=== PATIENT | male | born 1955 | race Caucasian/White ===

== ENCOUNTER 2019-04-11 00:03 | Observation (INO) ==
[2019-04-11] MEDS ORDERED: Aspirin 81 MG TAB.CHEW PO ONE (00:45)
[2019-04-11] MEDS ORDERED: Ondansetron 4 MG/2 ML VIAL IVP ONE (00:45)
[2019-04-11] MEDS ORDERED: Morphine Sulfate 2 MG/ML SYRINGE IVP ONE ×2 (00:45→02:30)
[2019-04-11 00:58] LABS: Eosinophils % 1.8 %; Hematocrit 38.2 % (37.5-50.1); Hemoglobin 13.2 g/dL (12.9-16.9); Immature Granulocytes % 0.4 % (0-4); Lymphocytes % 31.3 %; Mean Corpuscular HGB Conc 34.6 g/dL (31.6-35.5); Mean Corpuscular Hemoglobin 32.7 pg (28.0-33.3); Mean Corpuscular Volume 94.6 fL (83.0-100.0); Monocytes % 9.6 %; Platelet Count 201 K/mcL (140-400); Red Blood Count 4.04 M/mcL (4.19-5.50); Red Cell Distribution Width 12.5 % (11.5-14.5); Segmented Neutrophils % 56.6 %; White Blood Count 9.8 K/mcL (4.3-11.1)
[2019-04-11 00:59] LABS: Basophils % 0.3 %; Eosinophils # 0.2 K/mcL (0.0-0.6); Lymphocytes # 3.1 K/mcL (0.6-4.6); Monocytes # 0.9 K/mcL (0.0-1.3); Neutrophils # 5.5 K/mcL (1.6-8.9)
[2019-04-11 01:05] LABS: Prothrombin Time 11.7 Seconds (9.4-12.1)
[2019-04-11 01:08] LABS: Activated Partial Thrombo Time 34.5 Seconds (26.0-36.0)
[2019-04-11 01:20] LABS: Blood Urea Nitrogen 15 mg/dL (8-23); Calcium 9.3 mg/dL (8.6-10.3); Carbon Dioxide 25 mEq/L (23-29); Chloride 105 mEq/L (98-107); Glucose 114 mg/dL (70-105); Osmolality,Calculated 288 (280-300); Sodium 138 mEq/L (136-145); Troponin I < 0.03 ng/mL (< 0.04)
[2019-04-11 01:46] LABS: BUN/Creatinine Ratio 14 (6-26); eGFR For African Americans > 60 (> 60); eGFR For Non-African Americans > 60 (> 60)
[2019-04-11] MEDS ORDERED: Ondansetron 4 MG/2 ML VIAL IVP PRN (04:43)
[2019-04-11] MEDS ORDERED: Naloxone 0.4 MG/ML INJ IVP PRN (04:43)
[2019-04-11] MEDS ORDERED: Dexamethasone 10 MG/ML VIAL PO ONE (04:49)
[2019-04-11 07:47] VITALS: BP 154/84
[2019-04-11 08:05] LABS: Chol/HDL Ratio 7.2 (0-4.9)
[2019-04-11 08:17] LABS: Estimated Average Glucose 126 mg/dl
[2019-04-11] MEDS ORDERED: hydroCHLOROthiazide 25 MG TABLET PO SCH (09:00)
[2019-04-11] MEDS ORDERED: Regadenoson 0.4 MG/5 ML SYRINGE IVP ONE (10:36)
== END 2019-04-11 15:10 | disposition home or self-care (01) ==
LOC: 2ANU 00:03 → EMEROOARM 00:03 → SUATTDRO 03:37 → 2ANU 04:03
PROVIDERS: ADMIT Internal Medicine; ATTEND Family Medicine

== ENCOUNTER 2019-04-12 02:49 | Observation (INO) ==
[2019-04-12] MEDS ORDERED: Ondansetron 4 MG/2 ML VIAL IVP ONE (03:04)
[2019-04-12 03:26] LABS: Hematocrit 39.8 % (37.5-50.1); Hemoglobin 13.8 g/dL (12.9-16.9); Mean Corpuscular HGB Conc 34.7 g/dL (31.6-35.5); Mean Corpuscular Volume 95.2 fL (83.0-100.0); Mean Platelet Volume 10.2 fL (9.4-12.4); Platelet Count 219 K/mcL (140-400); Red Blood Count 4.18 M/mcL (4.19-5.50); Red Cell Distribution Width 12.4 % (11.5-14.5); White Blood Count 14.6 K/mcL (4.3-11.1)
[2019-04-12 03:42] LABS: INR 1.1
[2019-04-12] MEDS ORDERED: Isovue-370 500 ML BOTTLE IVP ONE (03:42)
[2019-04-12 03:44] LABS: Activated Partial Thrombo Time 33.9 Seconds (26.0-36.0)
[2019-04-12 04:02] LABS: Bilirubin,Urine Negative (Negative); Blood,Urine Negative (Negative); Clarity,Urine Clear (Clear); Color,Urine Yellow (Yellow); Glucose,Urine (UA) Normal (Normal); Ketones,Urine Negative (Negative); Leukocyte Esterase,Urine Negative (Negative); Nitrite,Urine Negative (Negative); PH,Urine 6.5 pH Units (5.0-8.0); Protein,Urine Negative (Neg-Trace); Specific Gravity,Urine 1.015 (1.010-1.025); Urobilinogen,Urine Normal (Normal)
[2019-04-12] MEDS ORDERED: Aspirin 325 MG TABLET PO ONE (04:33)
[2019-04-12 05:03] LABS: BUN/Creatinine Ratio 14 (6-26); Blood Urea Nitrogen 13 mg/dL (8-23); Calcium 9.5 mg/dL (8.6-10.3); Carbon Dioxide 28 mEq/L (23-29); Chloride 100 mEq/L (98-107); Glucose 139 mg/dL (70-105); Osmolality,Calculated 284 (280-300); Potassium 4.2 mEq/L (3.5-5.1); Sodium 136 mEq/L (136-145); eGFR For African Americans > 60 (> 60); eGFR For Non-African Americans > 60 (> 60)
[2019-04-12] MEDS ORDERED: Mag Hydrox/Al Hydrox/Simeth 30 ML UDC PO PRN (08:02)
[2019-04-12] MEDS ORDERED: Acetaminophen 325 MG TABLET PO PRN (08:02)
[2019-04-12] MEDS ORDERED: MOM Conc 10 ML UD.LIQ PO PRN (08:02)
[2019-04-12] MEDS ORDERED: Ondansetron 4 MG/2 ML VIAL IVP PRN (08:02)
[2019-04-12] MEDS ORDERED: Naloxone 0.4 MG/ML INJ IVP PRN (08:02)
[2019-04-12] MEDS ORDERED: Orphenadrine 60 MG/2 ML VIAL IVP ONE (09:42)
[2019-04-12] MEDS: hydroCHLOROthiazide 25 MG TABLET PO SCH (10:01)
[2019-04-12] MEDS: Famotidine 20 MG TABLET PO SCH ×2 (10:01→20:23)
[2019-04-12] MEDS: *HR* HYDROcodone/Acet 5/325 mg TABLET PO PRN ×2 (10:01→17:58)
[2019-04-12] MEDS: Aspirin Enteric Coated 81 MG Tablet PO SCH (10:02)
[2019-04-12 11:26] LABS: Folate 14.6 ng/mL (3.0-16.0)
[2019-04-12] MEDS ORDERED: MethylPREDNISolone 40 MG/ML VIAL IVP ONE (11:35)
[2019-04-12] MEDS: Thiamine (B-1) 100 MG TABLET PO SCH (12:21)
[2019-04-12] MEDS: Gabapentin 300 MG CAPSULE PO SCH ×2 (15:20→20:23)
[2019-04-12] MEDS: methylPREDNISolone 125 MG/2 ML VIAL IVP SCH (17:58)
[2019-04-13 04:40] LABS: Hematocrit 37.6 % (37.5-50.1); Hemoglobin 13.1 g/dL (12.9-16.9); Mean Corpuscular HGB Conc 34.8 g/dL (31.6-35.5); Mean Corpuscular Hemoglobin 32.3 pg (28.0-33.3); Mean Corpuscular Volume 92.8 fL (83.0-100.0); Mean Platelet Volume 10.4 fL (9.4-12.4); Platelet Count 230 K/mcL (140-400); Red Blood Count 4.05 M/mcL (4.19-5.50); Red Cell Distribution Width 12.3 % (11.5-14.5); White Blood Count 13.4 K/mcL (4.3-11.1)
[2019-04-13 04:57] LABS: BUN/Creatinine Ratio 17 (6-26); Blood Urea Nitrogen 17 mg/dL (8-23); Calcium 9.3 mg/dL (8.6-10.3); Carbon Dioxide 26 mEq/L (23-29); Chloride 102 mEq/L (98-107); Chol/HDL Ratio 8.3 (0-4.9); Cholesterol 225 mg/dL (< 200); Glucose 141 mg/dL (70-105); HDL Cholesterol 27 mg/dL (40-59); LDL Cholesterol,Calculated 166 mg/dL (0-99); Magnesium 1.9 mg/dL (1.6-2.6); Osmolality,Calculated 286 (280-300); Potassium 4.1 mEq/L (3.5-5.1); Sodium 136 mEq/L (136-145); Triglycerides 161 mg/dL (< 150); eGFR For African Americans > 60 (> 60); eGFR For Non-African Americans > 60 (> 60)
[2019-04-13] MEDS: methylPREDNISolone 125 MG/2 ML VIAL IVP SCH ×2 (05:09→18:42)
[2019-04-13 07:10] LABS: Estimated Average Glucose 123 mg/dl
[2019-04-13] MEDS: Gabapentin 300 MG CAPSULE PO SCH ×3 (07:45→20:56)
[2019-04-13] MEDS: Famotidine 20 MG TABLET PO SCH ×2 (07:46→20:56)
[2019-04-13] MEDS: hydroCHLOROthiazide 25 MG TABLET PO SCH (07:46)
[2019-04-13] MEDS: Aspirin Enteric Coated 81 MG Tablet PO SCH (07:46)
[2019-04-13] MEDS: Thiamine (B-1) 100 MG TABLET PO SCH (07:46)
[2019-04-13] MEDS: *HR* HYDROcodone/Acet 5/325 mg TABLET PO PRN ×2 (13:29→18:42)
[2019-04-13] MEDS: hydrOXYzine pamoate 25 MG CAPSULE PO PRN ×2 (13:31→20:56)
[2019-04-13] MEDS ORDERED: *HR* Heparin 5,000 UNIT/ML VIAL SQ SCH (14:00)
[2019-04-14] MEDS: methylPREDNISolone 125 MG/2 ML VIAL IVP SCH (06:05)
[2019-04-14] MEDS: hydrOXYzine pamoate 25 MG CAPSULE PO PRN ×2 (06:23→11:31)
[2019-04-14] MEDS: hydroCHLOROthiazide 25 MG TABLET PO SCH (09:18)
[2019-04-14] MEDS: Aspirin Enteric Coated 81 MG Tablet PO SCH (09:18)
[2019-04-14] MEDS: Gabapentin 300 MG CAPSULE PO SCH ×2 (09:18→15:33)
[2019-04-14] MEDS: Thiamine (B-1) 100 MG TABLET PO SCH (09:18)
[2019-04-14] MEDS: Famotidine 20 MG TABLET PO SCH (09:18)
[2019-04-14 15:27] VITALS: BP 130/77
== END 2019-04-14 17:24 | disposition short-term general hospital (02) ==
LOC: 2ANU 02:49 → EMEROOARM 02:49 → SUATTDRO 08:08 → 2ANU 08:42
PROVIDERS: ADMIT Internal Medicine; ATTEND Family Medicine

== ENCOUNTER 2021-09-24 18:19 | Inpatient (IN) ==
[2021-09-24] MEDS ORDERED: Baclofen 10 MG TABLET PO STA (18:45)
[2021-09-24 19:02] LABS: Hematocrit 42.1 % (37.5-50.1); Hemoglobin 14.8 g/dL (12.9-16.9); Mean Corpuscular HGB Conc 35.2 g/dL (31.6-35.5); Mean Corpuscular Hemoglobin 31.7 pg (28.0-33.3); Mean Corpuscular Volume 90.1 fL (83.0-100.0); Mean Platelet Volume 10.8 fL (9.4-12.4); Platelet Count 242 K/mcL (140-400); Red Blood Count 4.67 M/mcL (4.19-5.50); Red Cell Distribution Width 12.3 % (11.5-14.5); White Blood Count 15.3 K/mcL (4.3-11.1)
[2021-09-24] MEDS ORDERED: Ondansetron 4 MG/2 ML VIAL IVP ONE ×2 (19:05→19:56)
[2021-09-24] MEDS ORDERED: Ibuprofen 600 MG TABLET PO ONE (19:05)
[2021-09-24] MEDS ORDERED: 0.9 % Sodium Chloride 1,000 ML IVC ONE ×2 (19:05→20:27)
[2021-09-24] MEDS ORDERED: *HR* LORazepam 1 MG TABLET PO STA (19:05)
[2021-09-24 19:40] LABS: Alanine Aminotransferase 18 Units/L (7-52); Albumin 4.4 g/dL (3.5-5.7); Albumin/Globulin Ratio 1.5 (1.1-2.2); Alkaline Phosphatase 55 Units/L (34-104); Aspartate Amino Transferase 23 Units/L (13-39); BUN/Creatinine Ratio 14 (6-26); Bilirubin,Direct 0.1 mg/dL (0.0-0.2); Bilirubin,Indirect 0.7 mg/dL (0.0-1.0); Bilirubin,Total 0.8 mg/dL (0.3-1.0); Blood Urea Nitrogen 14 mg/dL (8-23); Calcium 9.6 mg/dL (8.6-10.3); Carbon Dioxide 20 mEq/L (23-29); Chloride 101 mEq/L (98-107); Globulin 2.9 g/dL (2.4-3.5); Glucose 114 mg/dL (70-105); Osmolality,Calculated 291 (280-300); Potassium 4.2 mEq/L (3.5-5.1); Sodium 140 mEq/L (136-145); Total Protein 7.3 g/dL (6.4-8.9); eGFR For African Americans > 60 (> 60); eGFR For Non-African Americans > 60 (> 60)
[2021-09-24 20:30] LABS: Bacteria,Urine Moderate per hpf (None-Few); Bilirubin,Urine Negative (Negative); Blood,Urine Negative (Negative); Clarity,Urine Clear (Clear); Color,Urine Light-Yellow (Yellow); Glucose,Urine (UA) Normal (Normal); Ketones,Urine 80 mg/dL (Negative); Leukocyte Esterase,Urine Negative (Negative); Mucus,Urine Few per lpf (None-Few); Nitrite,Urine Negative (Negative); Protein,Urine 70 mg/dL (Neg-Trace); RBC,Urine 0-3 per hpf (0-3); Specific Gravity,Urine 1.025 (1.010-1.025); Sperm,Urine Present per hpf (None Seen); Squamous Epithelial Cell,Urine Few per hpf (None-Few); Urobilinogen,Urine Normal (Normal)
[2021-09-24 21:00] LABS: VBG Ionized Calcium 0.98 mmol/L (1.15-1.35)
[2021-09-24] MEDS ORDERED: *HR* HYDROmorphone (PF) 1 MG/ML SYRINGE IVP ONE (21:01)
[2021-09-24 21:18] LABS: Magnesium 1.3 mg/dL (1.6-2.6); Phosphorous 1.1 mg/dL (2.7-4.5)
[2021-09-24] MEDS ORDERED: *HR* LORazepam 2 MG/ML VIAL IVP ONE ×2 (21:37→22:30)
[2021-09-24] MEDS ORDERED: Magnesium Sulfate 1 GM/102 ML PIGGYBACK IVPB ONE (22:03)
[2021-09-24] MEDS ORDERED: Naloxone 0.4 MG/ML INJ IVP PRN (23:42)
[2021-09-24] MEDS ORDERED: Potassium Phosphate 44 MEQ in 0.9 % Sodium Chloride 250 ML IVPB ONE (23:45)
[2021-09-24] MEDS ORDERED: Calcium Gluconate 1gm/50mL 1 GM/50 ML BAG IVPB ONE (23:46)
[2021-09-25 00:37] LABS: Adenovirus Not Detected (Not Detect); Bordetella Pertussis Not Detected (Not Detect); Chlamydophila pneumoniae Not Detected (Not Detect); Coronavirus 229E Not Detected (Not Detect); Coronavirus HKU1 Not Detected (Not Detect); Coronavirus NL63 Not Detected (Not Detect); Coronavirus OC43 Not Detected (Not Detect); Human Metapneumovirus Not Detected (Not Detect); Human Rhinovirus/Enterovirus Not Detected (Not Detect); Influenza A Subtype 2009 H1 Not Detected (Not Detect); Influenza B Not Detected (Not Detect); Mycoplasma pneumoniae Not Detected (Not Detect); Parainfluenza Virus 1 Not Detected (Not Detect); Parainfluenza Virus 2 Not Detected (Not Detect); Parainfluenza Virus 3 Not Detected (Not Detect); Parainfluenza Virus 4 Not Detected (Not Detect); Respiratory Syncytial Virus Not Detected (Not Detect); SARS-CoV-2 Not Detected (Not Detect)
[2021-09-25] MEDS: Ondansetron 4 MG/2 ML VIAL IVP PRN ×2 (00:45→12:54)
[2021-09-25] MEDS: 0.9 % Sodium Chloride 1,000 ML IVC SCH ×2 (00:46→08:15)
[2021-09-25] MEDS ORDERED: Melatonin 3 MG TABLET PO ONE (01:13)
[2021-09-25] MEDS: Piperacillin/Tazobactam 3.375 GM in 0.9 % Sodium Chloride Mini Bag 100 ML IVPB SCH ×4 (01:47→23:29)
[2021-09-25 02:02] LABS: Basophils % 0.2 %; Hematocrit 33.9 % (37.5-50.1); Immature Granulocytes % 0.5 % (0-4); Lymphocytes # 1.7 K/mcL (0.6-4.6); Lymphocytes % 15.4 %; Mean Corpuscular HGB Conc 35.4 g/dL (31.6-35.5); Mean Corpuscular Hemoglobin 31.8 pg (28.0-33.3); Mean Corpuscular Volume 89.9 fL (83.0-100.0); Mean Platelet Volume 10.5 fL (9.4-12.4); Monocytes # 0.9 K/mcL (0.0-1.3); Monocytes % 8.4 %; Neutrophils # 8.3 K/mcL (1.6-8.9); Platelet Count 182 K/mcL (140-400); Red Blood Count 3.77 M/mcL (4.19-5.50); Red Cell Distribution Width 12.3 % (11.5-14.5); Segmented Neutrophils % 75.5 %
[2021-09-25 02:07] LABS: Estimated Average Glucose 108 mg/dl; Hemoglobin A1C 5.4 %
[2021-09-25 02:19] LABS: INR 1.4; Prothrombin Time 16.1 Seconds (9.4-12.1)
[2021-09-25 02:35] LABS: BUN/Creatinine Ratio 16 (6-26); Blood Urea Nitrogen 14 mg/dL (8-23); Calcium 8.6 mg/dL (8.6-10.3); Carbon Dioxide 23 mEq/L (23-29); Chloride 107 mEq/L (98-107); Creatine Kinase 239 Units/L (30-223); Glucose 96 mg/dL (70-105); Magnesium 1.6 mg/dL (1.6-2.6); Osmolality,Calculated 292 (280-300); Phosphorous 2.9 mg/dL (2.7-4.5); Potassium 3.3 mEq/L (3.5-5.1); Sodium 141 mEq/L (136-145); Troponin I < 0.03 ng/mL (< 0.04); eGFR For African Americans > 60 (> 60); eGFR For Non-African Americans > 60 (> 60)
[2021-09-25 02:43] LABS: Procalcitonin 0.39 ng/mL (0.00-0.15)
[2021-09-25 02:51] LABS: Folate 6.3 ng/mL (3.0-16.0)
[2021-09-25] MEDS ORDERED: *HR* LORazepam 2 MG/ML VIAL IVP ONE (04:16)
[2021-09-25] MEDS ORDERED: Magnesium Sulfate 1 GM/102 ML PIGGYBACK IVPB ONE (04:46)
[2021-09-25] MEDS: *HR* LORazepam 1 MG TABLET PO PRN ×3 (08:15→22:23)
[2021-09-25] MEDS ORDERED: Gadolinium Contrast Agent (WT Based) IV PRN (11:43)
[2021-09-25] MEDS: Baclofen 10 MG TABLET PO SCH ×2 (15:35→20:39)
[2021-09-25] MEDS: Gabapentin 300 MG CAPSULE PO SCH ×2 (15:36→20:39)
[2021-09-25] MEDS: Acetaminophen 325 MG TABLET PO PRN (15:36)
[2021-09-25] MEDS ORDERED: Cyanocobalamin (B-12) 1,000 MCG/ML VIAL IM ONE (15:53)
[2021-09-25] MEDS ORDERED: GADOBUTROL 30 MMOL/30 ML VIAL IVP ONE (17:14)
[2021-09-26 01:55] LABS: Basophils % 0.1 %; Eosinophils # 0.1 K/mcL (0.0-0.6); Eosinophils % 0.6 %; Hematocrit 31.6 % (37.5-50.1); Hemoglobin 11.1 g/dL (12.9-16.9); Immature Granulocytes % 0.2 % (0-4); Lymphocytes % 24.8 %; Mean Corpuscular HGB Conc 35.1 g/dL (31.6-35.5); Mean Corpuscular Hemoglobin 32.5 pg (28.0-33.3); Mean Corpuscular Volume 92.4 fL (83.0-100.0); Mean Platelet Volume 10.6 fL (9.4-12.4); Monocytes % 12.2 %; Platelet Count 162 K/mcL (140-400); Red Blood Count 3.42 M/mcL (4.19-5.50); Red Cell Distribution Width 12.6 % (11.5-14.5); Segmented Neutrophils % 62.1 %; White Blood Count 8.1 K/mcL (4.3-11.1)
[2021-09-26 02:14] LABS: BUN/Creatinine Ratio 12 (6-26); Blood Urea Nitrogen 9 mg/dL (8-23); Calcium 8.1 mg/dL (8.6-10.3); Carbon Dioxide 24 mEq/L (23-29); Chloride 108 mEq/L (98-107); Creatine Kinase 258 Units/L (30-223); Glucose 97 mg/dL (70-105); Osmolality,Calculated 287 (280-300); Potassium 3.9 mEq/L (3.5-5.1); Sodium 139 mEq/L (136-145); eGFR For African Americans > 60 (> 60); eGFR For Non-African Americans > 60 (> 60)
[2021-09-26] MEDS: Piperacillin/Tazobactam 3.375 GM in 0.9 % Sodium Chloride Mini Bag 100 ML IVPB SCH (08:07)
[2021-09-26] MEDS: Baclofen 10 MG TABLET PO SCH ×2 (08:11→16:39)
[2021-09-26] MEDS: Gabapentin 300 MG CAPSULE PO SCH ×2 (08:11→16:39)
[2021-09-26] MEDS: *HR* LORazepam 1 MG TABLET PO PRN (08:17)
[2021-09-26] MEDS ORDERED: Gadolinium Contrast Agent (WT Based) IV PRN (08:34)
[2021-09-26] MEDS ORDERED: Aspirin Enteric Coated 81 MG Tablet PO SCH (09:00)
[2021-09-26] MEDS ORDERED: Losartan/HCTZ 50-12.5 TABLET PO SCH (09:00)
[2021-09-26] MEDS ORDERED: Vitamin B Complex/Vit C/Vit E 1 EACH TABLET PO SCH (09:00)
[2021-09-26] MEDS: Acetaminophen 325 MG TABLET PO PRN (12:06)
[2021-09-26] MEDS ORDERED: GADOBUTROL 30 MMOL/30 ML VIAL IVP ONE (14:13)
[2021-09-26 15:33] VITALS: BP 133/69; PULSE 62; TEMP 98.8; O2SAT 97
== END 2021-09-26 17:50 | disposition home or self-care (01) | DRG 872 ==
LOC: 2ANU 18:19 → EMEROOARM 18:19 → SUATTDRO 23:42 → 2ANU 09-25 00:23
PROVIDERS: ADMIT Student in an Organized Health Care Education/Training Program; ATTEND Internal Medicine